=== PATIENT | female | born 2000 | race Caucasian/White ===

== ENCOUNTER 2021-08-27 15:31 | Emergency (ER) | payer BC | END 2021-08-27 17:35 | disposition home or self-care (01) | LOC: CSHERS 15:31 | DX: S82.61XA Displaced fracture of lateral malleolus of right fibula, initial encounter for closed fracture (principal); X50.1XXA Overexertion from prolonged static or awkward postures, initial encounter; Y93.41 Activity, dancing | CPT/HCPCS: 29515 ==